=== PATIENT | male | born 1990 | race Caucasian/White ===

== ENCOUNTER 2024-12-01 20:29 | Emergency (ER) | payer OTHER, SELFPAY ==
[2024-12-01 20:31] VITALS: BP 151/76
[2024-12-01 21:02] LABS: % Basophils 0.5 % (0-2); % Eosinophils 3.9 % (0-6); % Immature Granulocytes 0.3 % (0-0.5); % Lymphocytes 30.6 % (20.5-51.1); % Monocytes 10.3 % (1.7-9.3); % Neutrophils 54.4 % (42.2-75.2); Absolute Eosinophils 0.3 10^3/uL (0-0.7); Absolute Lymphocytes 2.7 10^3/uL (1.2-3.4); Absolute Monocytes 0.9 10^3/uL (0.1-0.6); Absolute Neutrophils 4.7 10^3/uL (1.4-6.5); Hematocrit 40.4 % (39.0-52.0); Hemoglobin 14.6 g/dL (13.0-18.0); Mean Corp Hgb Conc. 36.1 g/dL (33.0-37.0); Mean Corpuscular Hgb 30.9 pg (27.0-31.0); Mean Corpuscular Volume 85.6 fL (80.0-94.0); Mean Platelet Volume 9.2 fL (7.4-10.4); Nucleated Red Blood Cells % 0 % (-); Platelet Count 268 10^3/uL (130-400); Red Blood Cell Count 4.72 10^6/uL (4.70-6.10); Red Cell Dist. Width 11.8 % (11.5-14.5); White Blood Cell Count 8.7 10^3/uL (4.8-10.8)
[2024-12-01 21:19] LABS: AST (SGOT) 94 U/L (17-59); Albumin 4.5 g/dl (3.5-5.0); Alkaline Phosphatase 63 U/L (38-126); Blood Urea Nitrogen 12 mg/dl (9-20); Calcium 9.4 mg/dl (8.4-10.2); Carbon Dioxide 25 mmol/L (22-30); Chloride 109 mmol/L (98-107); Glucose 105 mg/dl (70-99); Sodium 140 mmol/L (135-145); Total Bilirubin 0.6 mg/dl (0.2-1.3); Total Protein 6.9 g/dl (6.3-8.2); eGFR > 60.00
[2024-12-01 21:27] LABS: ALT (SGPT) 45 U/L (0-50)
[2024-12-02 00:21] VITALS: BMI 31.8
[2024-12-02 00:22] VITALS: BP 120/73
--- NOTE | 2024-12-02 00:32 | ED.GENMED ---
History of Present Illness
General
Chief Complaint: Skin Problem
Source: patient
Exam Limitations: none
Time Seen by Provider: 12/02/24 00:30
Nursing documentation reviewed up to this point in time: agreed with
History of Present Illness
History of Present Illness:
Note:
CHIEF COMPLAINT(S)
Rash
HISTORY OF PRESENT ILLNESS
The patient is a 34-year-old male with no past medical history who presents with a rash that started approximately 1 week ago. The rash is described as itchy, raised, and dry, although it appears shiny in some areas. There is a history of a
previous episode in which patient was seen at urgent care and he was given steroids which did improve the rash. This episode happened around 2 months ago. The patient denies being in contact with plants or animals, but there is recent use of a
different detergent, which coincides with some of the symptoms. The rash does not present with systemic symptoms such as fever or nausea or vomiting, no abdominal pain or chest pain. There are no intraoral lesions, and the skin is not sloughing.
The patient does not have any upper respiratory symptoms such as cough, tongue or lip swelling, difficulty swallowing. Patient reports that he has been living in different hotels and reports that he has been using all sorts of different soaps and
detergents. Patient does have a history of having eczema as a child.
PAST MEDICAL HISTORY
The patient reports a history of eczema.
REVIEW OF SYSTEMS
See HPI
PHYSICAL EXAM
Nursing notes reviewed and vital signs reviewed.
General: Patient is well appearing and in no acute distress; non-toxic
Skin: Diffuse macular papular rash noted to the chest, and bilateral arms with larger dry flaky plaques noted to the extensor surfaces of the elbows and armpits. Negative nikolosky's sign
Head: Normocephalic, atraumatic
Eyes: Sclera non-icteric. EOMs intact.
Mouth: No intraoral lesions, no uvular edema
Cardiac: Regular rate and rhythm, no murmurs
Peripheral Vascular: No lower extremity swelling or edema
Pulm: Normal respiratory effort,, no wheezes, rales, rhonchi
Abdomen: No abdominal tenderness to palpation, no rash noted
Neuro: CN II-XII intact, no focal neurologic deficits.
Psychiatric: Appropriate mood and affect.
PLAN
cbc, cmp
DIFFERENTIAL DIAGNOSIS
The Differential Diagnosis includes, in no particular order and is not limited to:
1. Contact dermatitis
2. Allergic dermatitis
3. Psoriasis
4. Eczema
5. Drug-induced rash
6. Infectious exanthem
7. Lichen planus
8. Seborrheic dermatitis
9. Tinea corporis
REVIEW OF PRIOR RECORDS
No prior ER physician documentation to review
No discharge summaries in [facility] to review
MDM/DISPOSITION
The patient is a 34-year-old male with no past medical history who presents with a rash that started approximately 1 week ago. He has no associated fevers or chills, difficulty breathing, difficulty swallowing. On physical exam he has a
maculopapular rash noted to the chest and b/l upper extremities with larger plaques noted near the arm pit and extensor surfaces of the elbows. It is itchy. Suspect contact dermatitis vs eczema vs psoriasis. Patient will be started on a steroid
taper. I did recommend using topical hydrocortisone cream on larger areas such as near the elbows but advised against prolonged use of this and over the whole body. Stressed follow up with derm considering this is the second episode. Pt stable for
discharge.
Review of Systems
Review of Systems
All Other Systems: ROS reviewed and negative except as documented in HPI and ROS
Phy Exam
Physical Exam
Physical Exam:
see hpi
Course
Orders/Labs/Results
Orders:
Orders
12/01/24 20:48
Complete Blood Count/With Diff Urgent
Comprehensive Metabolic Panel Urgent
12/02/24 00:43
Diphenhydramine [Benadryl] 25 mg PO NOW STA
Famotidine [Pepcid] 20 mg PO NOW STA
Prednisone [Deltasone] 50 mg PO NOW STA
Abnormal Lab Results
12/01/24
20:48
Absolute Monos (auto) 0.9 H 10^3/uL
(0.1-0.6)
Monocytes % 10.3 H %
(1.7-9.3)
Chloride 109 H mmol/L
(98-107)
Glucose 105 H mg/dl
(70-99)
AST 94 H U/L
(17-59)
12/01/24 20:48
12/01/24 20:48
Vital Signs
Initial and Last Documented VS:
Initial Vital Signs
Temp Pulse BP Pulse Ox
97.7 F 97 151/76 97
12/01/24 20:31 12/01/24 20:31 12/01/24 20:31 12/01/24 20:31
Last Documented Vital Signs
Temp Pulse Resp BP Pulse Ox
97.7 F 84 18 120/73 97
12/01/24 20:31 12/02/24 00:22 12/02/24 00:22 12/02/24 00:22 12/02/24 00:32
*Pulse Oximetry
SaO2: 97
Oxygen Mode of Delivery: Room air
Patient hypoxic: no
*Critical Care Note
Total Time (30-74mins, 75-104mins- exclusive of procedures): Not Applicable
ED Attending Note
-
Portions of this chart may have been created with voice recognition software.� Occasional wrong word or��sound alike� substitutions may have occurred due to the inherent limitations of voice recognition software.
Discharge Plan
Departure
Patient Disposition: Home (Routine Discharge)
Date of Disposition: 12/02/24
Time of Disposition: 01:00
Patient with high blood pressure during this ER visit?: Yes
Condition: Good
Discharge Problem:
Rash
Instructions: Skin Rash (DC), BLOOD PRESSURE
Prescriptions:
New
prednisone 10 mg Tablet
See Rx Instructions .ROUTE .COMPLEX Qty: 30 0RF
Rx Instructions:
Take By Mouth:
40 mg daily x3 days, 30 mg daily x3 days,
20 mg daily x3 days, 10 mg daily x3 days.
Referrals:
Polina Hartman MD [Consulting Staff, Dermatology] - Call in 1-3 days for appt
Activity Restrictions/Additional Instructions:
Prednisone has been sent to your pharmacy.
Please take 40 mg daily for 3 days, 30 mg daily for 3 days, 20 mg daily for 3 days, followed by 10 mg daily for 3 days.
Please call the attached number to schedule an appointment to see dermatology considering this is the second time this has happened to you.
Please follow-up with your primary care provider.
PLEASE RETURN EMERGENCY DEPARTMENT SHOULD YOU DEVELOP CHEST PAIN, SHORTNESS OF BREATH, DIFFICULTY SWALLOWING, SWELLING OF THE TONGUE OR LIPS, FEVERS OR CHILLS, DIFFICULTY BREATHING, INTRAORAL LESIONS, SLOUGHING OF THE SKIN, OR ANY OTHER SIGNS OR
SYMPTOMS WORRISOME TO YOU.
Interventions
Interventions:
*Risk Screen - Suicide Last Done: 12/02/24 01:27
*General Assessment Last Done: 12/02/24 01:27
*Neglect/Abuse Screening Last Done: 12/02/24 01:27
*ED- Fall Risk Assessment Last Done: 12/02/24 01:27
*ED COVID-19 Vaccine History Last Done: 12/02/24 01:27
*Nursing Disposition Last Done: 12/02/24 01:27
ED-Skin Assessment Last Done: 12/02/24 00:23
Discharge Date and Time
Discharge Date/Time: 12/02/24 01:28
Print Language: ARGENTINE
[2024-12-02] MEDS: PEPCID 20 MG PO (00:50)
[2024-12-02] MEDS: BENADRYL 25 MG PO (00:50)
[2024-12-02] MEDS: DELTASONE 50 MG PO (00:50)
== END 2024-12-02 01:28 | disposition home or self-care (01) ==
LOC: EMR 20:29
PROVIDERS: Emergency Medicine; EMERGENCY PHYSICIAN Emergency Medicine; FAMILY PHYSICIAN Emergency Medicine
DX: R21 Rash and other nonspecific skin eruption (principal)
CPT/HCPCS: 99283; 80053; 85025

== ENCOUNTER 2024-12-07 04:05 | Emergency (ER) | payer OTHER, SELFPAY ==
[2024-12-07 04:07] VITALS: BP 140/74
--- NOTE | 2024-12-07 04:56 | ED.GENMED ---
History of Present Illness
General
Chief Complaint: Skin Problem
Source: patient and previous hospital records (ED visit for similar complaint December 02, 2024.)
Exam Limitations: none
Time Seen by Provider: 12/07/24 04:49
History of Present Illness
History of Present Illness:
This is a 34-year-old gentleman who was evaluated in this ED December 02 with complaints of 1 week history of itchy rash primarily located bilateral forearms, upper arms, bilateral medial thighs.
Unremarkable laboratory studies.
Diagnosed with contact dermatitis and placed on prednisone taper which he continues to take.
Patient admits that rash has been improving until today when rash seemed to worsen especially tonight. He complains of itchy rash that is also burning in nature. He has not had a fever nor chills. No cough no shortness of breath, no sore throat.
No recent travel no recent antibiotic use.
Patient states he rewashed all of his close in his usual detergent and fabric softener.
No known exposure to any new household products nor foods.
On previous ED visit he was recommended to follow-up with application security architect. He has not scheduled an appointment as yet.
Past History
Past History
ED Past Medical History: None
ED Past Surgical History: None
Social History
Tobacco: Non-smoker
Alcohol: Occasional
Personal: Single
Living: with family
Employment: Not employed
Family History
Family History: Other (Noncontributory)
Phy Exam
Physical Exam
Physical Exam:
GENERAL: 34-year-old gentleman appears his stated age, awake and alert, pleasant, appears in no acute distress.
EYE: anicteric
NECK: Supple, nontender, no meningismus, no significant adenopathy.
ENT: posterior pharynx is clear, oral mucosa is moist. No rhinorrhea.
CARDIAC: Regular rate and rhythm. no murmur.
LUNGS: Clear breath sounds bilaterally, no acute respiratory distress, no wheezes/rales/rhonchi
ABDOMEN: Soft, nondistended, without focal tenderness
NEUROLOGICAL: Alert and oriented x3, no focal neuro deficits. Gait is de oliveira and steady.
SKIN: Warm and dry, normal color, skin intact. There is maculopapular rash, confluent in nature over bilateral shoulders, bilateral medial proximal thighs and inguinal region. There is a linear scabbed/plaque left anterior wrist without erythema
nor drainage nor soft tissue swelling.
MUSCULOSKELETAL: No C/C/E. peripheral pulses are full and equal b/l. No palpable tenderness.
PSYCH: Normal and appropriate interaction.
Course
Vital Signs
Initial and Last Documented VS:
Initial Vital Signs
Temp Pulse Resp BP Pulse Ox
98.9 F 110 22 140/74 98
12/07/24 04:07 12/07/24 04:07 12/07/24 04:07 12/07/24 04:07 12/07/24 04:07
Last Documented Vital Signs
Temp Pulse Resp BP Pulse Ox
98.9 F 110 22 140/74 98
12/07/24 04:07 12/07/24 04:07 12/07/24 04:07 12/07/24 04:07 12/07/24 04:07
MDM/Problems Addressed
Differential Diagnosis Includes:
Patient presents with recurrent maculopapular pruritic rash that appears contact dermatitis in nature.
Overall improved with oral steroids. Will add topical steroids.
Unremarkable laboratory studies just a few days ago. He has not had a fever. Nothing to suggest infectious process. No indication to repeat labs.
Recommend he avoid harsh detergents, discontinue fabric softener.
Recommend follow-up with dermatology for further evaluation especially if rash recurs or does not completely resolve.
*Pulse Oximetry
SaO2: 98
Oxygen Mode of Delivery: Room air
Patient hypoxic: no
*Critical Care Note
Total Time (30-74mins, 75-104mins- exclusive of procedures): Not Applicable
ED Attending Note
-
Portions of this chart may have been created with voice recognition software.� Occasional wrong word or��sound alike� substitutions may have occurred due to the inherent limitations of voice recognition software.
Discharge Plan
Departure
Patient Disposition: Home (Routine Discharge)
Date of Disposition: 12/07/24
Time of Disposition: 04:56
Patient with high blood pressure during this ER visit?: Yes
Condition: Good
Discharge Problem:
Contact dermatitis
Instructions: Contact dermatitis, BLOOD PRESSURE
Prescriptions:
New
mometasone 0.1 % cream
1 applic topical DAILY PRN (Reason: itchy rash) 14 Days Qty: 45 0RF
No Action
prednisone 10 mg Tablet
See Rx Instructions .ROUTE .COMPLEX Qty: 30 0RF
Rx Instructions:
Take By Mouth:
40 mg daily x3 days, 30 mg daily x3 days,
20 mg daily x3 days, 10 mg daily x3 days.
Referrals:
Polina Hartman MD [Consulting Staff, Dermatology] - Call in 1-3 days for appt
Activity Restrictions/Additional Instructions:
Finish prednisone taper.
You have been prescribed mometasone cream to apply thin film to itchy rash once daily as needed.
You can also take [id number] Zyrtec versus Benadryl as needed for itch.
Schedule an appointment with application security architect for further evaluation especially if rash recurs/persists.
Recommend avoidance of fabric softeners, harsh detergents, soaps etc.
Interventions
Interventions:
*Risk Screen - Suicide Last Done: 12/07/24 04:07
*Neglect/Abuse Screening Last Done: 12/07/24 04:07
Discharge Date and Time
Print Language: CAMBODIAN
[2024-12-07 04:59] VITALS: BP 133/76
== END 2024-12-07 05:03 | disposition home or self-care (01) ==
LOC: EMR 04:05
PROVIDERS: EMERGENCY PHYSICIAN Emergency Medicine
DX: L25.9 Unspecified contact dermatitis, unspecified cause (principal)
CPT/HCPCS: 99283